=== PATIENT | male | born 1980 | race Caucasian/White ===

== ENCOUNTER 2017-12-18 07:09 | Emergency (ER) | payer BC ==
[2017-12-18 07:22] VITALS: BP 127/90
--- NOTE | 2017-12-18 07:36 | UC ---
Respiratory Complaint HPI - HPI Summary HPI Summary: The patient is a 37-year-old male with a weeklong history of sinus pressure and pain ,postnasal drip ,nasal congestion and facial pressure, right upper dental pain and sore throat. He denies any fever or chills. Has low energy. He has no chest pain or shortness of breath. - History of Current Complaint Chief Complaint: UCRespiratory Stated Complaint: SINUS ISSUE Time Seen by Provider: 12/18/17 07:27 Hx Obtained From: Patient Onset/Duration: Gradual Onset, Lasting Weeks Timing: Constant Severity Initially: Mild Severity Currently: Severe Pain Intensity: 8 Pain Scale Used: 0-10 Numeric Character: Cough: Nonproductive Aggravating Factors: Nothing Alleviating Factors: Nothing Associated Signs And Symptoms: Positive: Nasal Congestion, Sinus Discomfort - Allergies/Home Medications Allergies/Adverse Reactions: Allergies Allergy/AdvReac Type Severity Reaction Status Date / Time No Known Allergies Allergy Verified 12/18/17 07:22 Home Medications: Home Medications Doxylam/PE/Dm/Acetaminophen/GG [Vicks Dayquil/Nyquil Tori] 1 liq PO 12/18/17 [ History] guaiFENesin [Mucinex] 600 mg PO 12/18/17 [History] PMH/Surg Hx/FS Hx/Imm Hx Previously Healthy: Yes - Bariatric surgery - Surgical History Surgical History: Yes Surgery Procedure, Year, and Place: Left knee surgery 2001. gastric sleve - Family History Known Family History: Positive: Hypertension - Social History Alcohol Use: Occasionally Alcohol Amount: 2 PER MONTH Substance Use Type: None Smoking Status (MU): Never Smoked Tobacco Have You Smoked in the Last Year: No - Immunization History Most Recent Influenza Vaccination: n/a Most Recent Tetanus Shot: 2013 Most Recent Pneumonia Vaccination: n/a Review of Systems Constitutional: Fatigue Skin: Negative Eyes: Negative ENT: Dental Pain, Nasal Discharge, Sinus Congestion, Sinus Pain/Tenderness Respiratory: Cough Cardiovascular: Negative Gastrointestinal: Negative Genitourinary: Negative Motor: Negative Neurovascular: Negative Musculoskeletal: Negative Neurological: Negative Psychological: Negative All Other Systems Reviewed And Are Negative: Yes Physical Exam Triage Information Reviewed: Yes Appearance: Well-Appearing, No Pain Distress Vital Signs: Initial Vital Signs Temp 97.7 F 12/18/17 07:15 Pulse 82 12/18/17 07:15 Resp 18 12/18/17 07:15 BP 127/90 12/18/17 07:15 Pulse Ox 97 12/18/17 07:15 Vital Signs Reviewed: Yes Eyes: Positive: Conjunctiva Clear ENT: Positive: Hearing grossly normal, Nasal congestion, TM bulging, Sinus tenderness - R>L, Uvula midline. Negative: Nasal drainage, TM dull, TM red, Tonsillar swelling, Tonsillar exudate, Trismus, Muffled voice, Hoarse voice, Dental tenderness Dental Exam: Normal Neck: Positive: Supple, Nontender, No Lymphadenopathy Respiratory: Positive: Lungs clear, Normal breath sounds, No respiratory distress, No accessory muscle use Cardiovascular: Positive: RRR, No Murmur Musculoskeletal: Positive: ROM Intact, No Edema Neurological: Positive: Alert Psychological Exam: Normal Skin Exam: Normal UC Diagnostic Evaluation - Laboratory O2 Sat by Pulse Oximetry: 97 - normal/not hypoxic Respiratory Course/Dx - Differential Dx/Diagnosis Provider Diagnoses: acute sinusitis. bilateral serous otitis media Discharge - Sign-Out/Discharge Documenting (check all that apply): Patient Departure All imaging exams completed and their final reports reviewed: No Studies - Discharge Plan Condition: Stable Disposition: HOME Prescriptions: Amoxicillin PO (*) [Amoxicillin 875 MG (*)] 875 mg PO BID #14 tab Fluticasone NASAL SPRAY 50MCG* [Flonase NASAL SPRAY 50MCG*] 2 spray BOTH NARES BID #1 btl Patient Education Materials: Sinusitis (ED) Referrals: Curt Davis, [employer] [Primary Care Provider] - If Needed Additional Instructions: saline nasal spray 2 sprays each nostril twice daily BP pre hypertensive get it rechecked when you are feeling better - Billing Disposition and Condition Condition: STABLE Disposition: Home
== END 2017-12-18 07:44 | disposition home or self-care (01) ==
LOC: UCEAST 07:09
DX: J01.90 Acute sinusitis, unspecified (principal); H65.93 Unspecified nonsuppurative otitis media, bilateral
CPT/HCPCS: 99212; G0463

== ENCOUNTER 2019-05-25 08:05 | Emergency (ER) | payer BC, OTHER ==
--- NOTE | 2019-05-25 08:47 | UC ---
FLU HPI - HPI Summary HPI Summary: 38yo male presenting with cough x10 days and fever x2 days. Patient states he has noticed his fever more in the mornings and evenings. States last fever was this morning at 0430 and was 101. Notes mild nasal congestion. States cough is intermittently productive of yellow sputum. Denies sob, wheezing, chest pain, and difficulty breathing. Denies n/v/d. Normal appetite and fluid intake. Taking tylenol for fever relief. Does note h/o bronchitis and pneumonia 2-3 years ago. - History of Current Complaint Chief Complaint: UCRespiratory Stated Complaint: COUGH,FEVER Hx Obtained From: Patient Pain Intensity: 0 - Allergy/Home Medications Allergies/Adverse Reactions: Allergies Allergy/AdvReac Type Severity Reaction Status Date / Time No Known Allergies Allergy Verified 05/25/19 08:17 Home Medications: Home Medications Acetaminophen TAB* [Tylenol TAB*] 500 mg PO Q4H PRN 05/25/19 [History Confirmed 05/25/19] Azithromyxin DEREK (NF) [Z-Derek (Zithromax) 250 mg tabs #6] 2 tab PO .TODAY, THEN 1 DAILY #6 tab 05/25/19 [Rx] PMH/Surg Hx/FS Hx/Imm Hx - Surgical History Surgical History: Yes Surgery Procedure, Year, and Place: Left knee surgery 2001. gastric sleve - Family History Known Family History: Positive: Hypertension - Social History Alcohol Use: Occasionally Alcohol Amount: 2 PER MONTH Substance Use Type: None Smoking Status (MU): Never Smoked Tobacco Have You Smoked in the Last Year: No - Immunization History Most Recent Influenza Vaccination: n/a Most Recent Tetanus Shot: 2013 Most Recent Pneumonia Vaccination: n/a Review of Systems All Other Systems Reviewed And Are Negative: Yes Constitutional: Positive: Fever. Negative: Chills, Fatigue ENT: Positive: Sinus Congestion Respiratory: Positive: Cough. Negative: Shortness Of Breath Cardiovascular: Positive: Negative Gastrointestinal: Positive: Negative Musculoskeletal: Positive: Negative Neurological/Mental Status: Positive: Negative Physical Exam - Summary Physical Exam Summary: Vital Signs Reviewed: Yes A+Ox3, no distress, well-appearing Eyes: Conjunctiva Clear ENT: Hearing grossly normal, TM x 2 clear, moist, uvula midline, no exudate, no erythema Neck: Positive: Supple, no LAD Respiratory: Positive: No respiratory distress, No accessory muscle use + CTA throughout no w/r Cardiovascular: RRR nl s1, s2 no m/r Musculoskeletal Exam: JOHNSON x 4 without difficulty Neurological: Positive: Alert Psychological: Positive: age appropriate behavior Skin: Positive: no rash, no ecchymosis Vital Signs: Vital Signs (72 hours) 05/25/19 08:40 Temperature 97.1 F Pulse Rate 87 Respiratory 16 Rate Blood Pressure 155/87 (mmHg) O2 Sat by Pulse 98 Oximetry Lab Results 05/25/19 05/25/19 Range/Units 08:46 08:48 Influenza A (Rapid) Negative (Negative) Influenza B (Rapid) Negative (Negative) Group A Strep Rapid Negative (Negative) Flu Course/Dx - Course Course Of Treatment: Flu and strep tests were negative. I discussed viral vs bacterial illness with patient. Patient prefers to take antibiotic at this time. I provided with z derek based on cough, fever, and h/o pneumonia. I discussed flu and strep results with the patient and informed him that he would receive the covid19 results from the health department within the next 3-5 days. I discussed self quarantining until results had been received from the health Department. Instructed to go to the ED if he experiences worsening shortness of breath/ difficulty breathing. Patient voiced understanding and agreed with treatment plan. All questions answered to the best of my abilities. Full PPE was worn during examination of this patient. - Differential Dx/Diagnosis Differential Diagnosis/HQI/PQRI: Bronchitis, Influenza, Pneumonia, Upper Respiratory Infection Provider Diagnosis: Acute bronchitis Discharge ED - Sign-Out/Discharge Documenting (check all that apply): Patient Departure All imaging exams completed and their final reports reviewed: No Studies - Discharge Plan Condition: Stable Disposition: HOME Prescriptions: Azithromyxin DEREK (NF) [Z-Derek (Zithromax) 250 mg tabs #6] 2 tab PO .TODAY, THEN 1 DAILY #6 tab Patient Education Materials: Acute Bronchitis (ED) Forms: COVID-19 Tested & Isolation Referrals: Curt Davis [employer] [Primary Care Provider] - Additional Instructions: As discussed, you tested negative for strep and flu today. You also received covid-19 testing. You will be notified of the results by the health department within 3-5 days. You need to self-quarantine for the next 14 days unless otherwise advised by a healthcare provider. This means staying home and no contact with anyone who lives with you. You should not share your bedroom or bathroom. Food should be left outside your door for you to take once the other person has walked away. You may continue with tylenol. Take antibiotic as prescribed. Increase your fluid intake. Go to the nearest emergency room or call 911 if you experience new or worsening symptoms. - Billing Disposition and Condition Condition: STABLE Disposition: Home
[2019-05-25 08:58] VITALS: BP 155/87
[2019-05-25 09:00] LABS: Influenza A Molecular Negative (Negative); Influenza B Molecular Negative (Negative)
== END 2019-05-25 09:15 | disposition home or self-care (01) ==
LOC: UCEAST 08:05
DX: J20.9 Acute bronchitis, unspecified (principal); Z20.828 Contact with and (suspected) exposure to other viral communicable diseases
CPT/HCPCS: 87635; 87651; 99212; G0463